=== PATIENT | female | born 1995 | race Caucasian/White ===

== ENCOUNTER → 2016-10-30 | Outpatient (CLI) | payer OTHER ==
[~2016-10-30] MED LIST: COLA100C5 PO; MOTR200T44 PO; NUPE1OIN2 TOP; STUACAP PO; TYLE325T5 PO
--- NOTE | 2016-10-30 11:39 | REP ---
LEFT FOOT, FOUR VIEWS: There is no evidence of an acute fracture, dislocation or intrinsic bone disease. IMPRESSION: No fracture or dislocation. Signed by Carlos Aguilera MD 10/30/2016 05:08 P
== END ==
LOC: M LRY 10:51
PROVIDERS: ATTEND Nurse Practitioner Family
DX: S99.922A Unspecified injury of left foot, initial encounter (principal); X58.XXXA Exposure to other specified factors, initial encounter; Y93.9 Activity, unspecified; Y92.9 Unspecified place or not applicable; Y99.8 Other external cause status
CPT/HCPCS: 73630; G0463